=== PATIENT | male | born 1970 | race African-American/Black ===

== ENCOUNTER → 2017-02-14 | Outpatient (CLI) | payer MEDICARE, BC ==
[~2017-02-14] MED LIST: AMLODIPINE BESY10 MG PO; ASPIRIN EC81 M1 PO; ASPIRIN81 M2 PO; BUMEX2 MG PO; CALCIUM ACETAT667 M1 PO; CLONIDINE PO; FOSRENOL500 MG PO; GLUCOTROL PO; GLUCOTROL XL2.5 MG PO; HYDRALAZINE HC100 MG PO; LISINOPRIL10 MG PO; LORATADINE PO; LOVENOX40 MG/0.4 INJ; METOPROLOL TAR100 MG PO; NORCO 10/3251 TAB PO; RENAL SOFTGEL1 MG PO; SENSIPAR90 MG PO
--- NOTE | ~2017-02-14 | EKG ---
PATIENT: ODALYS STAUFFER UNIT #: [id number] Ventricular Rate: 89 BPM Atrial Rate: 89 BPM P-R Interval: 162 ms QRS Duration: 78 ms Q-T Interval: 356 ms QTC Calculation(Bezet): 433 ms P [place]: 58 degrees Calculated R [place]: 6 degrees Calculated T [place]: 20 degrees Diagnosis Line: Normal sinus rhythm Diagnosis Line: Normal ECG Diagnosis Line: When compared with ECG of 17-NOV-2015 10:46, Diagnosis Line: No significant change was found Diagnosis Line: Confirmed by GHULAM ATWOOD MD ([id number]) on 02/15/2017 Diagnosis Line: 10:01:18 AM INTERPRETING MD: ANGELIC PENNINGTON
[2017-02-14 12:52] LABS: HEMATOCRIT 36.4 % (38.0-50.0); HEMOGLOBIN 11.6 gm/dL (13.0-16.0); MEAN CELL VOLUME 91.2 FL (83-96); MEAN CORPUSCULAR HGB CONC 31.8 g/dL (30-36); MEAN PLATELET VOLUME 7.8 FL (6.5-11.5); RED BLOOD COUNT 3.99 X10e (3.90-5.60); RED CELL DISTRIBUTION WIDTH 16.8 % (11.0-15.5); WHITE BLOOD COUNT 8.8 X10e3 (4.0-10.5)
[2017-02-14 13:59] LABS: BUN/CREATININE RATIO 4.18; CALCIUM SERUM 10.2 mg/dL (8.4-10.2); CREATININE SERUM 12.9 mg/dL (0.6-1.4); GLOM FILT RATE Estimated 4.7 mL/min (>60)
[2017-02-14 14:04] LABS: POTASSIUM 5.5 mmol/L (3.5-5.1)
== END | disposition home or self-care (01) ==
LOC: CAMB 11:00
PROVIDERS: Orthopaedic Surgery
DX: Z01.818 Encounter for other preprocedural examination (principal)
CPT/HCPCS: 36415; 80048; 85027; 93005

== ENCOUNTER → 2017-02-28 | Day surgery (SDC) | payer MEDICARE, BC ==
--- NOTE | ~2017-02-28 | EKG ---
PATIENT: ODALYS STAUFFER UNIT #: [id number] Ventricular Rate: 135 BPM Atrial Rate: 135 BPM P-R Interval: 176 ms QRS Duration: 78 ms Q-T Interval: 288 ms QTC Calculation(Bezet): 432 ms P [place]: 84 degrees Calculated R [place]: 17 degrees Calculated T [place]: 34 degrees Diagnosis Line: Sinus tachycardia Diagnosis Line: Low voltage QRS Diagnosis Line: Borderline ECG Diagnosis Line: When compared with ECG of 14-FEB-2017 11:39, Diagnosis Line: Vent. rate has increased BY 46 BPM Diagnosis Line: ST elevation now present in Inferior leads Diagnosis Line: Confirmed by CELI CHURCH MD ([id number]) on Diagnosis Line: 03/01/2017 8:47:05 AM INTERPRETING MD: LYNNETTE PENNINGTON
--- NOTE | ~2017-02-28 | OR ---
Unit #: [id number] #: [id number] Patient: ODALYS STAUFFER [id number] [address] [place], [place] [address] [id number] O MR#: [id number] NAME: ODALYS STAUFFER. ROOM: Date of Procedure: 02/28/2017 Admission Date: 02/28/2017 Surgeon: Killian Lindsey M.D. : 1970 Attending Physician: Killian Lindsey M.D. Primary Care Physician: Johan العلي M.D. OPERATIVE REPORT CHIEF COMPLAINT Left tibial retained hardware. POSTOPERATIVE DIAGNOSIS Left tibial retained hardware. PROCEDURE PERFORMED Left tibial screw removal (). ASSISTANTS Larry and Ferdinand. INDICATIONS FOR SURGERY The patient is a 46-year-old male with renal failure, diabetic neuropathy, and left Charcot ankle who underwent tibiotalocalcaneal fusion 15 months ago for a left Charcot ankle. 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 DESCRIPTION OF PROCEDURE The patient was taken to the operating room and placed in supine position. General anesthetic was induced. The left leg was identified as the correct operative extremity during the time-out procedure. The IV antibiotic protocol was followed. The left leg was then prepped and draped in usual sterile fashion. A tourniquet was not utilized. Under mini C-arm fluoroscopic control, the screw was identified and a 1 cm incision was made in the mid medial tibia through the old scar. Using blunt dissection, the screw head was identified. Over hanging bone was removed with a sevilla elevator. The screw was then easily removed with a hex head screwdriver. The wound was irrigated and then closed with 3-0 nylon horizontal mattress sutures. Xeroform gauze, dressing, and sponges were applied. The patient was then transported to the recovery room in stable condition. ESTIMATED BLOOD LOSS Minimal. COMPLICATIONS None. SPECIMENS None. Unit #: [id number] #: [id number] Patient: ODALYS STAUFFER TOURNIQUET TIME Zero. PLAN The patient may weight bear as tolerated. Follow up in my office in 10 days for repeat evaluation. Dictated by..Dale Pringle/jade TD: 02/28/2017 09:07 JOB #: [id number] OPERATIVE REPORT Page 1 of 1 X Araceli Lindsey MD PROCEDURE OPERATIVE NOTE
--- NOTE | ~2017-02-28 | HP ---
Unit #: [id number] #: [id number] Patient: ODALYS STAUFFER [id number] [address] [address] [id number] O MR#: [id number] NAME: ODALYS STAUFFER. ROOM: Age: Sex: M Admission Date: 02/28/2017 : 1970 Attending Physician: Killian Lindsey M.D. Primary Care Physician: Johan العلي M.D. HISTORY AND PHYSICAL CHIEF COMPLAINT Retained painful hardware left leg. 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 The patient has an incomplete consolidation of his fusion at the tibiocalcaneal fusion site. The patient is therefore to undergo dynamization of his intramedullary nail with removal of his proximal locking screw. He will be allowed to weight bear as tolerated after this procedure. PAST MEDICAL HISTORY Past medical history is remarkable for diabetes, renal failure, sleep apnea, morbid obesity, hypertension, right Charcot ankle. PAST SURGICAL HISTORY As noted above. HOME MEDICATIONS Amlodipine, bumetanide, Claritin, diazepam, glipizide, hydralazine, hydrochlorothiazide, hydrocodone, lisinopril, metoprolol, renal caps. ALLERGIES None. PAST SURGICAL HISTORY As noted above. FAMILY HISTORY Unknown. SOCIAL HISTORY The patient drinks alcohol. He is a nonsmoker. PHYSICAL EXAMINATION GENERAL: Height 6 foot 3, weight 370 pounds, BMI 46.2. In general this is a morbidly obese male in no acute distress. HEENT: Pharynx is clear. NECK: Neck is supple, without masses. HEART: Exam reveals a regular sinus rhythm without murmurs or gallops. LUNGS: The lungs are clear. Unit #: [id number] #: [id number] Patient: ODALYS STAUFFER ABDOMEN: The abdomen is soft and nontender, without masses or organomegaly. EXTREMITIES: Evaluation of the left ankle demonstrates a neutral heel with mild swelling. There are no skin wounds. He has stocking neuropathy with stocking loss of sensation in the foot. Pulses are intact. There is no false motion at the ankle joint. There is a 1.5 cm leg length discrepancy with the left leg being shorter than the right. DIAGNOSTIC STUDIES IMAGING: Standing x-rays of the left ankle demonstrate no evidence of fusion of the calcaneotibial articulation. ADMITTING DIAGNOSIS Delayed left tibiocalcaneal fusion. PLAN The patient will undergo dynamization of the intramedullary nail with removal of the proximal locking screw. This procedure was described along with risks of bleeding, infection, nerve damage, need for further surgery in the future, prolonged recovery time, deep venous thrombosis, failure to fuse. He understands the above risks and agrees to proceed. Dictated by Dale Khalil/prosper TD: 02/27/2017 21:01 JOB #: [id number] HISTORY AND PHYSICAL Page 1 of 1 X Araceli Lindsey MD X HISTORY AND PHYSICAL
== END | disposition home or self-care (01) ==
LOC: CSUR 05:31
DX: T84.84XA Pain due to internal orthopedic prosthetic devices, implants and grafts, initial encounter (principal); M96.0 Pseudarthrosis after fusion or arthrodesis; E11.40 Type 2 diabetes mellitus with diabetic neuropathy, unspecified; E11.22 Type 2 diabetes mellitus with diabetic chronic kidney disease; I12.9 Hypertensive chronic kidney disease with stage 1 through stage 4 chronic kidney disease, or unspecified chronic kidney disease; N18.9 Chronic kidney disease, unspecified; J45.909 Unspecified asthma, uncomplicated; E66.01 Morbid (severe) obesity due to excess calories; E05.90 Thyrotoxicosis, unspecified without thyrotoxic crisis or storm; G47.30 Sleep apnea, unspecified; Z68.42 Body mass index [BMI] 45.0-49.9, adult; Z87.01 Personal history of pneumonia (recurrent); Z99.2 Dependence on renal dialysis; Z88.5 Allergy status to narcotic agent; Z91.013 Allergy to seafood; Z79.82 Long term (current) use of aspirin; Z79.891 Long term (current) use of opiate analgesic; Z79.899 Other long term (current) drug therapy; Y83.1 Surgical operation with implant of artificial internal device as the cause of abnormal reaction of the patient, or of later complication, without mention of misadventure at the time of the procedure
CPT/HCPCS: 82947; 84132; 93005; J0690; J2250; J3010; J3490